=== PATIENT | female | born 1985 | race Caucasian/White ===

== ENCOUNTER 2020-06-09 08:25 | Inpatient (IN) | payer OTHER ==
[2020-06-09 09:15] VITALS: BMI 33.8
[2020-06-09] MEDS ORDERED: ONDANSETRON 4 MG/2 ML VIAL IVPUSH PRN (09:51)
[2020-06-09] MEDS ORDERED: morphine SULFATE/PF 0.5 MG/ML (2cc Syringe - QUVA) ONE (09:58)
[2020-06-09] MEDS ORDERED: OXYTOCIN 10 UNITS/ML VIAL ONE ×6 (09:58→12:47)
[2020-06-09] MEDS ORDERED: ELECTROLYTE-148 SOLN 1,000 ML IV SCH (10:15)
--- NOTE | 2020-06-09 10:16 | HP ---
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: Alzheimer's, CVA, Dementia, Migraine, Multiple Sclerosis, Peripheral Neuropathy, Parkinson's, Seizure, Syncope, TIA, Vertigo, Other Cardiovascular: No: AFIB, Aneurysm, Aortic Insufficiency, Aortic Stenosis, CAD, CHF, Deep Vein Thrombosis, HTN, Hyperlipdemia, [place], Mitral Insufficiency, Mitral Stenosis, Murmur, Pulmonary Hypertension, Other Pulmonary: No: Asthma, Bronchitis, Cancer, COPD, O2 Dependent, Pneumonia, Previously Intubated, Pulmonary Embolus, Pulmonary Fibrosis, Sleep Apnea, Other Gastrointestinal: No: Ascites, Cancer, Constipation, Crohn's Disease, Diverticulitis, Diverticulosis, Esophageal Varices, Gastritis, GERD, GI Bleed, Hemorrhoids, Hiatal Hernia, Inflamatory Bowel Disease, Irritable Bowel Disease, Pancreatitis, Peptic Ulcer Disease, Ulcerative Colitis, Other Hepatobiliary: No: Cirrhosis, Cholelithiasis, Cholecystitis, Choledocholithiasis, Hepatitis A, Hepatitis B, Hepatitis C, Other Renal/: No: Renal Failure, Renal Inusuff, BPH, Cancer, Hematuria, Hemodialysis, Neurogenic Bladder, Renal Calculi, UTI, Other Reproductive: No: Ectopic , Endometriosis, Fibroids, PID, Polycystic Ovary Syndrome, Postmenopausal, Other ...: 3 ...Para: 1 ...Term: 1 ...: 0 ...Spon : 0 ...Induced : 0 ...Living Children: 1 ...Multiple Gestation: 0 ...LMP: 09/10/19 ... Weeks Gestation by Dates: 39.0 ...EDC by Dates: 06/16/20 ...EDC by Sono: 06/15/20 Heme/Onc: No: Anemia, B12 Deficiency, Bleeding Disorder, Cancer, Current Chemotherapy, Current Radiation Therapy, Hemochromatosis, Hypercoaguable State, Myeloproliferative Synd, Sickle Cell Disease, Sickle Cell Trait, Thrombocytopenia, Other Infectious Disease: No: AIDS, C-Diff, Herpes Zoster, HIV, MRSA, STD's, Tuberculosis, VREF, Other Psych: No: Addictions, Anxiety, Bipolar, Depression, Panic, Psychosis, Schizophrenia, Other Musculoskeletal: No: Bursitis, Chronic low back pain, Hemiparesis, Hemiplegia, Osteoarthritis, Paraplegia, Other Rheumatology: No: Fibromyalgia, Gout, Lupus, Rheumatoid Arthritis, Sarcoidosis, Vasculitis, Other ENT: No: Allergic Rhinitis, Sinusitis, Other Endocrine: No: Nespe[place]'s Disease, [place]'s Disease, Diabetes Insipidus, Diabetes Mellitus, Hyperparathyroidism, Hyperthyroidism, Hypothyroidism, Osteopenia, SIADH, Other Dermatology: No: Basal Cell, Cellulitis, Eczema, Melanoma, Psoriasis, Squamous Cell, Other - Past Surgical History Past Surgical History: Yes: Hx Myomectomy: No Hx Transabdominal Cerclage: No - Smoking History Smoking history: Never smoked Have you smoked in the past 12 months: No - Alcohol/Substance Use Hx Alcohol Use: No History of Substance Use: reports: None - Social History History of Recent Travel: No Home Medications - Allergies Allergies/Adverse Reactions: Allergies Allergy/AdvReac Type Severity Reaction Status Date / Time No Known Allergies Allergy Verified 06/09/20 09:18 - Home Medications Home Medications: Ambulatory Orders No115/Iron/Folic Acid [ 19 Chewable Tablet] 1 each PO DAILY 06/09/20 Family Medical History Family History: Unable to Obtain Review of Systems - Review of Systems Constitutional: reports: No Symptoms Eyes: reports: No Symptoms HENT: reports: No Symptoms Neck: reports: No Symptoms Cardiovascular: reports: No Symptoms Respiratory: reports: No Symptoms Gastrointestinal: reports: No Symptoms Genitourinary: reports: No Symptoms Breasts: reports: No Symptoms Reported Musculoskeletal: reports: No Symptoms Integumentary: reports: No Symptoms Neurological: reports: No Symptoms Endocrine: reports: No Symptoms Hematology/Lymphatic: reports: No Symptoms Psychiatric: reports: No Symptoms Physical Exam - Maternity Vital Signs: Vital Signs Temperature 98.6 F 06/09/20 09:04 Pulse Rate 86 06/09/20 09:04 Respiratory Rate 20 06/09/20 09:04 Blood Pressure 101/73 06/09/20 09:04 O2 Sat by Pulse Oximetry (%) Constitutional: Yes: No Distress HENT: Yes: Atraumatic Neck: Yes: Supple Cardiovascular: Yes: Regular Rate and Rhythm Breast(s): Yes: Other - Abdominal Exam/OB Number of Fetuses: Single Presentation: Vertex Contractions: No Regularity: Irregular Intensity: Unaware Monitor Mode: External Heart Rate (range): 140 Category: I Accelerations: Uniform Decelerations: None - Vaginal Exam/OB Vaginal Bleeding: No Presentation: Vertex/Position Station: -3 - Physical Exam Musculoskeletal: Yes: WNL Extremities: Yes: WNL Edema: Yes Edema: LLE: Trace, RLE: Trace Integumentary: Yes: WNL ...Motor Strength: WNL Psychiatric: Yes: Alert, Oriented Imaging - Results Ultrasound: Report Reviewed Assessment/Plan 34 y/o @ 39,0wks, prior C/s desiring repeat and BTL, late transfer of care. Patient counseled regarding ridks and complications of the surgery. All questions answered and desires bilateral salpingectomy. Incident report filed as patient original covid-19 testing was misplaced and 2nd swab required pre- surgically. -Proceed with surgery
[2020-06-09] MEDS ORDERED: ceFAZolin SODIUM 1 GM VIAL ONE ×2 (11:29)
[2020-06-09] MEDS ORDERED: ACETAMINOPHEN 325 MG TABLET (FP) PO PRN (11:45)
[2020-06-09] MEDS ORDERED: IBUPROFEN 600 MG TABLET (FP) PO PRN (11:45)
--- NOTE | 2020-06-09 11:49 | OP ---
Operative Note - Note: Operative Date: 06/09/20 Pre-Operative Diagnosis: prior c/s at term desiring btl Operation: repeat cs and BS Post-Operative Diagnosis: Same as Pre-op Surgeon: Real Ross Naval Aircrewman: Andrew Calderon Anesthesia: Spinal Estimated Blood Loss (mls): 700 Drains, Volume Out (mls): 500 Fluid Volume Replaced (mls): 1,500 Operative Report Dictated: Yes
[2020-06-09] MEDS: IBUPROFEN 800 MG/8 ML IJ IVPB PRN ×2 (11:55→19:29)
[2020-06-09] MEDS ORDERED: IBUPROFEN 800 MG/8 ML IJ IVPB ONE (11:59)
--- NOTE | 2020-06-09 12:12 | PN ---
Progress Note (short form) - Note Progress Note: dic # [id number] specimen; bilateral fallopian tubes
[2020-06-09] MEDS: OXYTOCIN 20 UNITS in 0.9% NS 20 UNIT/1,000 ML INFUS.BAG IV SCH (12:45)
[2020-06-09] MEDS: ACETAMINOPHEN 325 MG TABLET (FP) PO PRN (18:07)
--- NOTE | 2020-06-09 20:02 | OP ---
DATE OF OPERATION: 06/09/2020 PREOPERATIVE DIAGNOSIS: A 34-year-old 2, para 1, at 39 weeks of gestation, prior section x1, at the time of repeat desiring a sterilization. POSTOPERATIVE DIAGNOSIS: A 34-year-old 2, para 1, at 39 weeks of gestation, prior section x1, at the time of repeat desiring a sterilization. PROCEDURE: Repeat low transverse section, bilateral salpingectomy. SURGEON: Nikky Alcantara MD. FITTER TACKER: CHITO Roth. ANESTHESIA: Spinal. ESTIMATED BLOOD LOSS: 700. INTRAVENOUS FLUIDS: 1500 mL of crystalloid. URINE: 500 mL of clear. COMPLICATIONS: None. FINDINGS: Normal lower abdominal scar consistent with prior section, more amount subcutaneous adipose tissue. The fascia was fibrotic and adherent to underlying rectus muscles. The fascia and rectus muscles were fused to each other in the midline. Low uterine segment was effaced, thin. The bladder was adherent to the lower uterine segment. Infant in cephalic presentation, loose nuchal cord x2, clear amniotic fluid, live viable male. Uterus, bilateral tubes and ovaries were consistent with normal anatomy. Bladder dome and rectus muscles-fascia interphase were intact. DESCRIPTION OF PROCEDURE: The patient was taken to the operating room where anesthesia was found to be adequate. She was then prepped and draped in the normal sterile fashion. A Sales catheter was placed atraumatically. Appropriate timeout took place. Pfannenstiel skin incision was made. Following Pfannenstiel C/S scar, the incision was carried to underlying fascia with Bovie. The fascia was incised in the midline and incision extended laterally with sharp dissection. The underlying rectus muscles were dissected off sharply. The rectus muscles were at the midline bluntly superiorly. The incision was extended inferiorly without difficulty. Bladder blade was placed on the lower uterus with intraoperative findings as previously mentioned. The lower uterine segment incision was made with the scalpel and extended laterally with blunt dissection. Amniotomy revealed clear amniotic fluid. in cephalic presentation. The head was delivered through the surgical incision without difficulty. Nuchal cords were removed, and the rest of the body delivered without difficulty. Umbilical cord was clamped and cut after delay. The was handed off to the waiting NICU staff attending. The placenta was elevated manually and intact. Samples for blood were obtained. The uterus was exteriorized through the surgical incision, and the intrauterine cavity was cleared of all clots and debris. The incision was reapproximated with 1-0 Polysorb running locked suture. Excellent structural reapproximation with 1-layer suture, 2 [id number] were required in the midline to neutralize minimal oozing. Attention was directed to the left fallopian tube which was elevated and the mesosalpinx transected with the LigaSure instrument. The complete tube was excised, and excellent hemostasis with the surgical stump. Attention was then redirected to the contralateral fallopian tube which underwent the exact same procedure which was described without difficulty. Excellent hemostasis. The uterus was internalized to the pelvic cavity. Uterus and gutters were cleared of all clots and debris. Once again, excellent hemostasis noted. Bladder dome and rectal muscles fascial interface were examined. Rectus muscles reapproximated manually. The fascial incision was reapproximated with 0 Polysorb running nonlocking sutures. Excellent structural reapproximated achieved and confirmed by digital palpation by the surgeon. Subcutaneous tissues were copiously irrigated. Bleeders neutralized with Bovie cautery. Subcutaneous tissue were reapproximated with 2-0 chromic sutures. Skin was reapproximated with surgical sonia. The patient tolerated the procedure well and was brought to the recovery room in stable condition. Instrument count was reported as correct x2 by the staff. NIKKY ALCANTARA MD [id number] MTDD
[2020-06-10] MEDS: IBUPROFEN 800 MG/8 ML IJ IVPB PRN (03:37)
[2020-06-10 07:53] LABS: BASO % 0.2 % (0-2.0); EOS % 0.9 % (0-4.5); HEMATOCRIT 38.8 % (32.4-45.2); MCH 29.8 pg (25.7-33.7); MCHC 33.5 g/dl (32.0-36.0); MEAN PLT VOLUME 7.7 fl (7.5-11.1); MONO % 3.1 % (3.8-10.2); NEUT % 77.8 % (42.8-82.8); PLATELET COUNT 277 K/MM3 (134-434); RBC 4.36 M/mm3 (3.60-5.2); RDW 15.1 % (11.6-15.6); WHITE BLOOD COUNT 11.6 K/mm3 (4.0-10.0)
--- NOTE | 2020-06-10 08:16 | PN ---
Post Progress Note - Subjective Subjective: Ambulating, tolerating PO, lochia decreased, voiding, breast feeding Post Day: 1 Type of Delivery: Repeat C/S Vital Signs: Vital Signs Temperature 98.6 F 06/10/20 04:00 Pulse Rate 84 06/10/20 04:00 Respiratory Rate 20 06/10/20 06:00 Blood Pressure 113/77 06/10/20 04:00 O2 Sat by Pulse Oximetry (%) 100 06/09/20 20:21 Breast Exam: Yes: Other Uterus: Yes: Fundus Firm Incision: Yes: Dressing dry and intact, [place] intact Abdomen/GI: Yes: Abdomen soft Lochia, amount: Moderate Extremities: Yes: Calves non-tender Perineum: Yes: Intact Activity: Ambulating Assessment/Plan 34 y/o POD # 1 S/P RCS and sterilization, PP/post-op precautions/instructions reviewed -F/U AM CBC -continue PP/post-op care -encourage ambulation -Anticipate D/C on POD # 2 vs 3
--- NOTE | 2020-06-10 10:52 | PN ---
Progress Note (short form) - Note Progress Note: Anesthesia postop note 34 y/o F s/p spinal anesthesia/duramorph for section POD#1, vss, aaox3, sensory motor intact distally, pain well controlled. No anesthesia complications.
[2020-06-10] MEDS ORDERED: BISACODYL 10 MG SUPP.RECT RC PRN (11:46)
[2020-06-10] MEDS: SIMETHICONE 80 MG TAB.CHEW (FP) PO PRN ×2 (12:10→22:00)
[2020-06-10] MEDS: ACETAMINOPHEN 325 MG TABLET (FP) PO PRN ×2 (12:10→21:59)
[2020-06-10] MEDS: IBUPROFEN 600 MG TABLET (FP) PO PRN ×2 (12:11→22:00)
--- NOTE | 2020-06-10 13:59 | PATH ---
Surgical Pathology Report Patient Name: JANY FINE [facility]. Rec. #: [id number] /Age/Gender: 1985 (Age: 34) / F Account: [id number] Location: [facility] OBS/MANAGER RESEARCH DEVELOPMENT Taken: 06/09/2020 Received: 06/09/2020 Reported: 06/10/2020 Physicians: Real Ross MD Specimen(s) Received A: LEFT FALLOPIAN TUBE B: RIGHT FALLOPIAN TUBE C: PLACENTA Clinical History Final Diagnosis A. FALLOPIAN TUBE, LEFT, SALPINGECTOMY: FALLOPIAN TUBE WITH FEW WALTHARD NEST CYSTS AND VASCULAR CONGESTION (INCLUDING FIMBRIATED END AND FULL LUMINAL PORTION). B. FALLOPIAN TUBE, RIGHT, SALPINGECTOMY: FALLOPIAN TUBE WITH PATCHY STROMAL DECIDUALIZATION AND VASCULAR CONGESTION (INCLUDING FIMBRIATED END AND FULL LUMINAL PORTION). C. PLACENTA, SECTION: 506 G THIRD TRIMESTER PLACENTA WITH TRIVASCULAR UMBILICAL CORD AND UNREMARKABLE PLACENTAL MEMBRANES. Electronically Signed Avis Norris M.D. Gross Description A. Received in formalin labeled "left fallopian tube," is an 8 cm in length fimbriated fallopian tube. The outer surface is fleming purple and smooth. Sectioning reveals an unremarkable lumen. Welder Tack sections are submitted in 2 cassettes as follows: 1-fimbria; 2-cross sections of fallopian tube. B. Received in formalin labeled "right fallopian tube," is a 7.5 cm in length fimbriated fallopian tube. The outer surface is fleming purple and smooth. Sectioning reveals an unremarkable lumen. Welder Tack sections are submitted in 2 cassettes as follows: 1-fimbria; 2-cross sections of fallopian tube. C. The specimen is received fresh labeled placenta and is a 506 gram, 18.0 x 16.0 x 2.4 cm. placenta with attached membranes and umbilical cord. The attached membranes are lamas, translucent with focal opacities and insert marginally. The umbilical cord measures 51 cm. in length and averages 0.9 cm. in diameter. The cord inserts eccentrically, 5 cm. to the nearest margin. No true knots or strictures are identified. Cut surface of the umbilical cord reveals 3 vessels. The surface is rose-blue with minimal fibrin deposition and appropriate caliber vessels. The maternal surface is red-brown with focal defects. Sectioning reveals red-brown, spongy parenchyma. No lesions are identified. Welder Tack sections are submitted in three cassettes as follows: 1- membrane rolls and umbilical cord; 2-3- full thickness sections of placenta. 06/09/2020 [facility]06/09/2020
[2020-06-10] MEDS: OXYTOCIN 20 UNITS in 0.9% NS 20 UNIT/1,000 ML INFUS.BAG IV SCH (21:58)
[2020-06-10 22:21] VITALS: PULSE 86
--- NOTE | 2020-06-11 07:36 | DS ---
Physical Exam-INDIVIDUAL SMALL GROUP INSTRUCTOR Vital Signs: Vital Signs Temperature 98.5 F 06/10/20 22:20 Pulse Rate 86 06/10/20 22:20 Respiratory Rate 18 06/10/20 22:20 Blood Pressure 123/78 06/10/20 22:20 O2 Sat by Pulse Oximetry (%) 98 06/10/20 22:20 Constitutional: Yes: Well Nourished, Other (c/o pain scale 6/10) Eyes: Yes: WNL HENT: Yes: WNL Neck: Yes: WNL Cardiovascular: Yes: WNL Respiratory: Yes: WNL Gastrointestinal: Yes: WNL, Normal Bowel Sounds, Soft, Other (bm done). No: Distention ...Rectal Exam: Yes: Deferred Renal/: Yes: WNL. No: CVA Tenderness - Left, CVA Tenderness - Right ....Post : Yes: Uterus firm (below umblicus), Uterus non-tender, Moderate lochia rubra Breast(s): Yes: WNL (both breast & bottle feeding . breast not engorged) Musculoskeletal: Yes: WNL Extremities: Yes: WNL. No: Calf Tenderness Edema: LLE: Trace, RLE: Trace Wound/Incision: Yes: Clean/Dry, Well Approximated, [place] Intact, Open to air. No: Draining, Reddened, Bleeding, Excoriated Neurological: Yes: WNL, Alert, Oriented ...Motor Strength: WNL Psychiatric: Yes: WNL Labs: CBC, BMP 06/10/20 07:22 Delivery - Delivery Type of Anesthesia: Spinal Episiotomy/Laceration: None EBL (cc): 700 Delivery, Single - Stages of Labor Date of Delivery: 06/09/20 Time of Delivery: 10:54 Time Placenta Delivered: 10:55 - Condition of Infant Medical Claims Manager/Wagon Drill Operator Present: Yes Name: Lyndsey Cohen Infant Gender: Male Weight: 7 lb 15 oz Position: Left, OA Total Hours ROM (Hrs/Mins): 1min - 1 Minute Total Score: 9 5 Minutes Total Score: 9 - [place] Feeding Plan Initial Plan: Elected not to breastfeed exclusively throughout hospitalization Remarks - Remarks Remarks: post op RC/SEC with BS , day #2 stable requests , discharge today pt states she has appt in the clinic next week for sonia removal po instructions given discharge today Discharge Summary Problems reviewed: Yes Reason For Visit: Current Active Problems Multiparity (Acute) with 39 completed weeks gestation (Acute) Previous section (Acute) Condition: Stable - Instructions Diet, Activity, Other Instructions: Please return to regular diet as tolerated. Refrain from strenuous activity until cleared by MD. Follow up within 1 week for incision check. Call MD with any questions or concerns Referrals: Real Ross MD [Staff Physician] - Disposition: HOME - Home Medications Comprehensive Discharge Medication List: Ambulatory Orders Acetaminophen [Tylenol] 325 mg PO Q6H PRN #30 capsule MDD 5 06/09/20 Ibuprofen 600 mg PO Q6H PRN #20 tablet 06/09/20 Oxycodone HCl 5 mg PO Q6H PRN #14 capsule MDD 5 06/09/20 No115/Iron/Folic Acid [ 19 Chewable Tablet] 1 each PO DAILY 06/09/20
[2020-06-11] MEDS: oxyCODONE HCL 5 MG TABLET PO PRN ×2 (08:32→15:21)
[2020-06-11] MEDS: SIMETHICONE 80 MG TAB.CHEW (FP) PO PRN ×2 (08:32→15:21)
[2020-06-11] MEDS: IBUPROFEN 600 MG TABLET (FP) PO PRN ×2 (08:32→15:21)
[2020-06-11 11:32] VITALS: BP 111/78; TEMP 98.2
== END 2020-06-11 16:50 | disposition home or self-care (01) | DRG 540 ==
LOC: JLDR 08:25 → J3W 13:15
PROVIDERS: ADMIT Student in an Organized Health Care Education/Training Program; ATTEND Student in an Organized Health Care Education/Training Program
PROC: 0UT70ZZ Resection of Bilateral Fallopian Tubes, Open Approach (ICD-10-PCS; 2020-06-09)
PROC: 10D00Z1 Extraction of Products of Conception, Low, Open Approach (ICD-10-PCS; principal; 2020-06-09 10:00)
DX: O34.219 Maternal care for unspecified type scar from previous cesarean delivery (principal); Z3A.39 39 weeks gestation of pregnancy; Z37.0 Single live birth; Z30.2 Encounter for sterilization
CPT/HCPCS: 36415; 85025; 88302-TC; 88307-TC; 94760; U0003

== ENCOUNTER 2022-12-21 04:04 | Day surgery (SDC) | payer OTHER ==
[2022-12-15 14:26] VITALS: BMI 31.2
[2022-12-21] MEDS ORDERED: PROMETHAZINE HCL 25 MG/1 ML VIAL IVPB PRN (10:27)
[2022-12-21] MEDS ORDERED: oxyCODONE HCL 5 MG TABLET PO PRN (10:27)
[2022-12-21] MEDS ORDERED: ONDANSETRON 4 MG/2 ML VIAL IVPUSH PRN (10:27)
[2022-12-21] MEDS ORDERED: LACTATED RINGERS SOLUTION 1,000 ML IV SCH (10:30)
[2022-12-21] MEDS ORDERED: MIDAZOLAM HCL 2 MG/2 ML SINGLE DOSE VIAL ONE (12:03)
[2022-12-21] MEDS ORDERED: PROPOFOL 40 ML ONE (12:03)
[2022-12-21] MEDS ORDERED: LIDOCAINE HCL/PF 2% SDV 5ML VIAL ONE (12:03)
[2022-12-21] MEDS ORDERED: ONDANSETRON 4 MG/2 ML VIAL ONE (12:26)
[2022-12-21] MEDS ORDERED: DEXAMETHASONE SOD PHOSPHATE 4 MG/1 ML VIAL ONE (12:26)
[2022-12-21] MEDS ORDERED: KETOROLAC TROMETHAMINE 30 MG/1 ML VIAL ONE (12:51)
[2022-12-21] MEDS ORDERED: ACETAMINOPHEN 1000 MG/100 ML BAG IVPB PRN (13:05)
[2022-12-21] MEDS ORDERED: ACETAMINOPHEN INJECTION 100 ML IVPB ONE (13:36)
[2022-12-21 14:40] VITALS: RESP 18
[2022-12-21 15:46] VITALS: BP 132/82; PULSE 83; TEMP 97.9
== END 2022-12-21 15:40 | disposition home or self-care (01) ==
LOC: JASU-SURG 04:04
PROVIDERS: ATTEND Student in an Organized Health Care Education/Training Program
PROC: 0UB98ZZ Excision of Uterus, Via Natural or Artificial Opening Endoscopic (ICD-10-PCS; principal; 2022-12-21 12:00)
DX: N92.1 Excessive and frequent menstruation with irregular cycle (principal); N84.0 Polyp of corpus uteri
CPT/HCPCS: 81025; 88305-TC; 94760